=== PATIENT | female | born 1965 | race Caucasian/White ===

== ENCOUNTER 2016-09-21 20:57 | Emergency (ER) | payer BC ==
[2016-09-21] MEDS ORDERED: BENADRYL25 M3 PO (21:16)
[2016-09-21] MEDS ORDERED: PREDNISONE20 M1 PO (22:32)
== END 2016-09-21 22:43 ==
LOC: EDMED 20:57
DX: L50.0 Allergic urticaria (principal); F17.200 Nicotine dependence, unspecified, uncomplicated
CPT/HCPCS: J0171; J1200